=== PATIENT | female | born 1985 | race American Indian/Alaskan Native ===

== ENCOUNTER 2016-02-18 21:39 | Emergency (ER) | payer SELFPAY ==
[2016-02-18 22:46] VITALS: BP 193/124
== END 2016-02-19 03:10 | disposition left against medical advice (07) ==
LOC: ED 21:39
DX: M79.641 Pain in right hand (principal); M79.89 Other specified soft tissue disorders; Z53.21 Procedure and treatment not carried out due to patient leaving prior to being seen by health care provider

== ENCOUNTER 2016-07-04 16:58 | Emergency (ER) | payer SELFPAY ==
[2016-07-04] MEDS ORDERED: TYLENOL PO ONE (17:45)
[2016-07-04] MEDS ORDERED: CATAPRES PO ONE (18:11)
[2016-07-04 18:13] LABS: Basophils % (Auto) 0.6 % (0.0-1.8); Eosinophils % (Auto) 0.2 % (0.0-4.3); Hematocrit 32.3 % (30.3-42.9); Hemoglobin 10.3 gm/dl (10.1-14.3); Mean Corpuscular HGB Conc 32 % (30-34); Mean Corpuscular Volume 79 fl (79-97); Platelet Count 288 K/mm3 (140-440); Red Blood Count 4.08 M/mm3 (3.65-5.03); Red Cell Distribution Width 16.3 % (13.2-15.2); White Blood Count 13.1 K/mm3 (4.5-11.0)
[2016-07-04 18:20] LABS: Mean Corpuscular Hemoglobin 25 pg (28-32)
[2016-07-04 18:21] LABS: Anion Gap 19 mmol/L; BUN/Creatinine Ratio 18.33; Blood Urea Nitrogen 11 mg/dL (7-17); Calcium 9.2 mg/dL (8.4-10.2); Carbon Dioxide 22 mmol/L (22-30); Chloride 101.6 mmol/L (98-107); Glucose 90 mg/dL (65-100); Sodium 139 mmol/L (137-145)
[2016-07-04] MEDS ORDERED: DILAUDID IV ONE (23:07)
[2016-07-04] MEDS ORDERED: NACL 0.9% 1000 ML 1,000 ML IV ONE ×2 (23:07→23:08)
[2016-07-04] MEDS ORDERED: ZOFRAN IV ONE (23:08)
--- NOTE | 2016-07-04 23:10 | Emergency Department Report ---
ED General Adult HPI - General Chief complaint: Neuro Symptoms/Deficit Stated complaint: LUPUS Time Seen by Provider: 07/04/16 22:58 Source: patient, RN notes reviewed, old records reviewed Mode of arrival: Ambulatory Limitations: No Limitations - History of Present Illness Initial comments: This is a 30-year-old female. I have evaluated her in the past. She reports that she is seeing a new primary care doctor on either July 15 or July 16. She does not know the name of the primary care doctor. Past medical history includes asthma, hypertension, drug seeking behavior, obesity, polycystic ovarian syndrome, lupus, possible endometriosis. The patient presents to the ER today complaining of abdominal pain, back pain, body pain. This is been going on for days so. Positive cough. No chest pain. Mild nausea no vomiting. No irritative or obstructive urinary symptoms. Abdominal pain is achy, sharp, and diffuse. It increases with palpation and decreases with rest. The patient endorses a surgical history of right nephrectomy, right salpingectomy. Also endorses a history of fibroid removal, and ovarian cystectomy 2. -: Gradual Location: back, abdomen, left, right, upper extremity, lower extremity Severity scale (0 -10): 10 Quality: aching, sharp Improves with: medication Worsens with: movement Associated Symptoms: cough, loss of appetite, malaise, weakness. denies: confusion, chest pain - Related Data Previous Rx's Medication Instructions Recorded Last Taken Type Dicyclomine [Bentyl] 10 mg PO QID PRN #20 capsule 12/25/15 Unknown Rx Lisinopril [Zestril TAB] 40 mg PO QDAY #30 tablet 12/25/15 Unknown Rx Ondansetron [Zofran Odt] 4 mg PO QID PRN #20 tab.rapdis 12/25/15 Unknown Rx Acetaminophen [Tylenol Arthritis] 650 mg PO Q4HR PRN #30 tablet.er 07/05/16 Unknown Rx Ondansetron [Zofran Odt] 4 mg PO QID PRN #20 tab.rapdis 07/05/16 Unknown Rx Allergies Allergy/AdvReac Type Severity Reaction Status Date / Time ibuprofen [From Motrin] Allergy Vomiting Verified 12/09/14 03:37 Iodinated Contrast Media - Allergy Swelling Verified 12/09/14 03:37 IV Dye ketorolac tromethamine Allergy Vomiting Verified 12/09/14 03:37 [From Toradol] NSAIDS (Non-Steroidal Allergy Swelling Verified 10/29/15 03:56 Anti-Inflamma Penicillins Allergy Hives Verified 12/09/14 03:37 tramadol AdvReac Vomiting Verified 12/09/14 03:37 ED Review of Systems ROS: Stated complaint: LUPUS Other details as noted in HPI Constitutional: malaise, weakness Eyes: denies: vision change ENT: denies: epistaxis Respiratory: cough Cardiovascular: denies: chest pain Gastrointestinal: abdominal pain Genitourinary: denies: dysuria Musculoskeletal: back pain, arthralgia, myalgia Skin: denies: lesions Neurological: weakness Psychiatric: anxiety ED Past Medical Hx - Past Medical History Hx Hypertension: Yes Hx CVA: No Hx GERD: No Hx Liver Disease: No Hx Asthma: Yes Additional medical history: Left ovarian cyst; uterine fibroid, morbid obesity, endometriosis. Lupus - Surgical History Past Surgical History?: Yes Additional Surgical History: right ovarian cyst removal X2,last 11/10/14 laproscopic, right fallopian tube removed, fibroids removed - Social History Smoking Status: Never Smoker Substance Use Type: None - Medications Home Medications: Home Medications Medication Instructions Recorded Confirmed Last Taken Type Dicyclomine [Bentyl] 10 mg PO QID PRN #20 capsule 12/25/15 Unknown Rx Lisinopril [Zestril TAB] 40 mg PO QDAY #30 tablet 12/25/15 Unknown Rx Ondansetron [Zofran Odt] 4 mg PO QID PRN #20 tab.rapdis 12/25/15 Unknown Rx Acetaminophen [Tylenol Arthritis] 650 mg PO Q4HR PRN #30 tablet.er 07/05/16 Unknown Rx Ondansetron [Zofran Odt] 4 mg PO QID PRN #20 tab.rapdis 07/05/16 Unknown Rx ED Physical Exam - General Limitations: No Limitations General appearance: alert, in no apparent distress, obese - Head Head exam: Present: atraumatic, normocephalic - Eye Eye exam: Present: normal appearance, EOMI. Absent: nystagmus - ENT ENT exam: Present: normal exam, normal orophraynx, mucous membranes moist, normal external ear exam - Neck Neck exam: Present: normal inspection, full ROM. Absent: tenderness, meningismus - Respiratory Respiratory exam: Present: normal lung sounds bilaterally. Absent: respiratory distress, wheezes, rales, rhonchi, stridor, chest wall tenderness, accessory muscle use, decreased breath sounds, prolonged expiratory - Cardiovascular Cardiovascular Exam: Present: regular rate, normal rhythm, normal heart sounds. Absent: bradycardia, tachycardia, irregular rhythm, systolic murmur, diastolic murmur, rubs, gallop - GI/Abdominal GI/Abdominal exam: Present: soft, tenderness, normal bowel sounds, other (there is mild diffuse abdominal tenderness, no rebound, guarding or peritoneal signs.) . Absent: distended, guarding, rebound, rigid, pulsatile mass - External exam: Present: normal external exam Speculum exam: Present: normal speculum exam, cervical discharge. Absent: vaginal bleeding Bi-manual exam: Present: normal bi-manual exam, adnexal tenderness, uterine tenderness, other (during the gynecologic examination, I am escorted by nurse Keturah Lara) - Extremities Exam Extremities exam: Present: normal inspection, full ROM, normal capillary refill. Absent: tenderness, pedal edema, joint swelling, calf tenderness - Back Exam Back exam: Present: normal inspection, full ROM. Absent: tenderness, CVA tenderness (R), CVA tenderness (L), muscle spasm - Neurological Exam Neurological exam: Present: alert, oriented X3, normal gait, other (Extraocular movements intact. Tongue midline. No facial droop. Facial sensation intact to light touch in the V1, V2, V3 distribution bilaterally. 5 and 5 strength in 4 extremities.. Sensation is intact to light touch in 4 extremities.). Absent : motor sensory deficit - Psychiatric Psychiatric exam: Present: anxious - Skin Skin exam: Present: warm, dry, intact, normal color. Absent: rash ED Course Vital Signs 07/04/16 07/04/16 07/04/16 17:35 18:17 20:48 Temperature 97.6 F 99 F Pulse Rate 88 88 73 Respiratory 16 18 Rate Blood Pressure 184/125 183/124 173/107 O2 Sat by Pulse 100 Oximetry 07/04/16 07/04/16 07/04/16 22:29 22:30 22:32 Temperature Pulse Rate 82 Respiratory 16 Rate Blood Pressure 150/96 O2 Sat by Pulse 98 100 99 Oximetry 07/05/16 07/05/16 07/05/16 00:42 01:00 01:11 Temperature Pulse Rate 86 84 Respiratory 15 13 18 Rate Blood Pressure 150/96 195/107 O2 Sat by Pulse 100 Oximetry 07/05/16 07/05/16 07/05/16 01:26 01:27 01:41 Temperature Pulse Rate 85 Respiratory 18 18 Rate Blood Pressure 196/107 O2 Sat by Pulse Oximetry 07/05/16 07/05/16 07/05/16 02:44 02:51 03:00 Temperature Pulse Rate Respiratory 18 Rate Blood Pressure 137/93 168/81 O2 Sat by Pulse 98 99 Oximetry 07/05/16 04:00 Temperature Pulse Rate Respiratory 18 Rate Blood Pressure O2 Sat by Pulse 100 Oximetry ED Medical Decision Making - Lab Data Result diagrams: 07/04/16 17:52 07/04/16 17:52 Vital Signs 07/04/16 07/04/16 07/04/16 17:35 18:17 20:48 Temperature 97.6 F 99 F Pulse Rate 88 88 73 Respiratory 16 18 Rate Blood Pressure 184/125 183/124 173/107 O2 Sat by Pulse 100 Oximetry 07/04/16 07/04/16 07/04/16 22:29 22:30 22:32 Temperature Pulse Rate 82 Respiratory 16 Rate Blood Pressure 150/96 O2 Sat by Pulse 98 100 99 Oximetry 07/05/16 07/05/16 07/05/16 00:42 01:00 01:11 Temperature Pulse Rate 86 84 Respiratory 15 13 18 Rate Blood Pressure 150/96 195/107 O2 Sat by Pulse 100 Oximetry 07/05/16 07/05/16 01:26 01:27 Temperature Pulse Rate 85 Respiratory 18 Rate Blood Pressure 196/107 O2 Sat by Pulse Oximetry Lab Results 07/04/16 07/04/16 07/04/16 Range/Units 00:52 17:52 17:52 WBC 13.1 H (4.5-11.0) K/mm3 RBC 4.08 (3.65-5.03) M/mm3 Hgb 10.3 (10.1-14.3) gm/dl Hct 32.3 (30.3-42.9) % MCV 79 (79-97) fl MCH 25 L (28-32) pg MCHC 32 (30-34) % RDW 16.3 H (13.2-15.2) % Plt Count 288 (140-440) K/mm3 Lymph % (Auto) 11.6 L (13.4-35.0) % [place] % (Auto) 5.4 (0.0-7.3) % Eos % (Auto) 0.2 (0.0-4.3) % Baso % (Auto) 0.6 (0.0-1.8) % Lymph # 1.5 (1.2-5.4) K/mm3 [place] # 0.7 (0.0-0.8) K/mm3 Eos # 0.0 (0.0-0.4) K/mm3 Baso # 0.1 (0.0-0.1) K/mm3 Seg Neutrophils % 82.2 H (40.0-70.0) % Seg Neutrophils # 10.8 H (1.8-7.7) K/mm3 Sodium 139 (137-145) mmol/L Potassium 4.0 (3.6-5.0) mmol/L Chloride 101.6 (98-107) mmol/L Carbon Dioxide 22 (22-30) mmol/L Anion Gap 19 mmol/L BUN 11 (7-17) mg/dL Creatinine 0.6 L (0.7-1.2) mg/dL Estimated GFR > 60 ml/min BUN/Creatinine Ratio 18.33 % Glucose 90 (65-100) mg/dL Calcium 9.2 (8.4-10.2) mg/dL Urine Color Yellow (Yellow) Urine Turbidity Clear (Clear) Urine pH 5.0 (5.0-7.0) Ur Specific [place] 1.026 (1.003-1.030) Urine Protein <15 mg/dl (Negative) mg/dL Urine Glucose (UA) Neg (Negative) mg/dL Urine Ketones Neg (Negative) mg/dL Urine Blood Neg (Negative) Urine Nitrite Neg (Negative) Urine Bilirubin Neg (Negative) Urine Urobilinogen < 2.0 (<2.0) mg/dL Ur Leukocyte Esterase Neg (Negative) Urine WBC (Auto) 1.0 (0.0-6.0) /HPF Urine RBC (Auto) 2.0 (0.0-6.0) /HPF U Epithel Cells (Auto) 2.0 (0-13.0) /HPF Urine Mucus Few /HPF Urine HCG, Qual (Negative) 07/04/16 Range/Units Unknown WBC (4.5-11.0) K/mm3 RBC (3.65-5.03) M/mm3 Hgb (10.1-14.3) gm/dl Hct (30.3-42.9) % MCV (79-97) fl MCH (28-32) pg MCHC (30-34) % RDW (13.2-15.2) % Plt Count (140-440) K/mm3 Lymph % (Auto) (13.4-35.0) % [place] % (Auto) (0.0-7.3) % Eos % (Auto) (0.0-4.3) % Baso % (Auto) (0.0-1.8) % Lymph # (1.2-5.4) K/mm3 [place] # (0.0-0.8) K/mm3 Eos # (0.0-0.4) K/mm3 Baso # (0.0-0.1) K/mm3 Seg Neutrophils % (40.0-70.0) % Seg Neutrophils # (1.8-7.7) K/mm3 Sodium (137-145) mmol/L Potassium (3.6-5.0) mmol/L Chloride (98-107) mmol/L Carbon Dioxide (22-30) mmol/L Anion Gap mmol/L BUN (7-17) mg/dL Creatinine (0.7-1.2) mg/dL Estimated GFR ml/min BUN/Creatinine Ratio % Glucose (65-100) mg/dL Calcium (8.4-10.2) mg/dL Urine Color (Yellow) Urine Turbidity (Clear) Urine pH (5.0-7.0) Ur Specific [place] (1.003-1.030) Urine Protein (Negative) mg/dL Urine Glucose (UA) (Negative) mg/dL Urine Ketones (Negative) mg/dL Urine Blood (Negative) Urine Nitrite (Negative) Urine Bilirubin (Negative) Urine Urobilinogen (<2.0) mg/dL Ur Leukocyte Esterase (Negative) Urine WBC (Auto) (0.0-6.0) /HPF Urine RBC (Auto) (0.0-6.0) /HPF U Epithel Cells (Auto) (0-13.0) /HPF Urine Mucus /HPF Urine HCG, Qual Negative (Negative) - EKG Data -: EKG Interpreted by [place] EKG shows normal: sinus rhythm Rate: normal - EKG Data 07/05/16 02:04 normal sinus, 76 bpm, high left ventricular voltage, normal axis , QTC 450 ms, not morphologically consistent with STEMI, unchanged from prior EKGs December 2015. - Radiology Data Radiology results: report reviewed, image reviewed Noncontrast CT scan of the abdomen and pelvis: There is a nonspecific nodule noted in the right lower lobe. gallstones. Aorta , IVC within normal limits. No evidence of hydronephrosis. Left ovarian cystic structure is 5 x 4.1 cm. Multiple pelvic phleboliths. The appendix is normal. No focal inflammatory changes noted in the bowel or bowel obstruction. Nonspecific subcutaneous nodules along the anterior lower abdominal wall. Impression: Left adnexal cystic structure, likely ovarian in origin, previously 2.9 x 2.0 cm, pelvic ultrasound recommended. - Medical Decision Making Differential diagnosis: Lupus flare, pneumonia, urinary tract infection, endometriosis, ovarian cysts, hypertension Assessment and plan: 30-year-old female with acute on chronic exacerbation of chronic body pain and abdominal pain. She is afebrile, with elevated blood pressure. Noncontrast CT scan of the abdomen and pelvis demonstrates no acute surgical disease, and is essentially similar to prior CT scan. Had mild left adnexal discomfort, however doubt ovarian torsion, I have evaluated the patient for similar complaints in the past. Had markedly elevated blood pressure in the ER, which was treated aggressively, the patient was able to tolerate feeds. Pelvic ultrasound at this time is pending. care transferred to Dr West to follow up. Assuming pelvic ultrasound demonstrates no evidence of torsion or other surgical emergency, think the patient will be suitable to follow up with an outpatient primary care doctor and vocational technical education teacher. The patient reports that she has follow-up in a few days. She will be instructed to follow-up with her outpatient primary care doctor for further evaluation of hypertension. The patient endorses an allergy to NSAIDs, will prescribe acetaminophen for her pain. Critical care attestation.: If time is entered above; I have spent that time in minutes in the direct care of this critically ill patient, excluding procedure time. ED Disposition Clinical Impression: Abdominal pain, Elevated blood pressure reading Disposition: DISCHARGED TO HOME OR SELFCARE Is pt being admited?: No Does the pt Need Aspirin: No Condition: Stable Instructions: Endometriosis (ED), Hypertension (ED) Additional Instructions: Cultures were sent today, results will be available in the next 3-5 days. Have a primary care doctor contact the medical records department to obtain culture results. Follow-up with your primary care doctor appointment on July 15. It is very important to follow-up with her outpatient primary care appointment. Blood pressure was very elevated in the emergency room. Blood pressure needs to be better controlled, which should be done by her primary care doctor. Long- term complications of hypertension/elevated blood pressure includes stroke, heart attack, disability, paralysis, permanent loss of quality of life. Take the pain medication, nausea medication as directed. Return to the ER right away with new pain, worsened pain, migration of pain, fevers, chills, intractable nausea or vomiting, change in mental status, chest pain, inability to tolerate liquid feeds. Prescriptions: Acetaminophen [Tylenol Arthritis] 650 mg PO Q4HR PRN #30 tablet.er PRN Reason: Pain Ondansetron [Zofran Odt] 4 mg PO QID PRN #20 tab.rapdis PRN Reason: Nausea Referrals: PRIMARY CAREMD [Primary Care Provider] - 3-5 Days [facility] [Provider Group] - 3-5 Days [facility] [Provider Group] - 3-5 Days [facility] [Provider Group] - 3-5 Days
[2016-07-04] MEDS ORDERED: NACL 0.9% 1000 ML 1,000 ML ONE (23:50)
--- NOTE | 2016-07-05 00:50 | Cat Scan Report ---
FINAL REPORT EXAM: CT ABDOMEN PELVIS WO CON HISTORY: abd pain COMPARISON: CT abdomen pelvis December 2015. TECHNIQUE: Contiguous axial images were obtained. Additional sagittal and coronal reformatted images were obtained. FINDINGS: Partial visualization of 2 millimeter noncalcified nodule right lower lobe. Respiratory motion somewhat limits evaluation of the lung bases. No calcified gallstones. Liver, spleen, pancreas and adrenal glands are grossly unremarkable. No calcified gallstones. No nephrolithiasis or hydronephrosis. Aorta and IVC are normal in caliber. No distal ureteral or urinary bladder calculi uterus and right ovary grossly unremarkable. Left ovarian cystic structure measuring 5.0 x 4.1 centimeters. Multiple pelvic phleboliths. No free fluid or pathologic lymphadenopathy. The appendix is normal in caliber measuring 5 millimeters. No focal inflammatory changes the bowel or bowel obstruction. Bony pelvis and lumbar spine are grossly intact. Nonspecific subcutaneous nodules along the anterior lower abdominal wall which may relate to subcutaneous injection. IMPRESSION: Left adnexal cystic structure likely ovarian in origin measuring 5.0 x 4.1 centimeters in axial dimension. On prior exam this measured 2.9 x 2.0 centimeters. This may be physiologic given the patient's age. Followup pelvic ultrasound suggested to ensure resolution versus stability in the next 6-8 weeks. Stable 2 millimeter noncalcified nodule right lower lobe likely postinflammatory. No other gross acute findings.
[2016-07-05] MEDS ORDERED: APRESOLINE IV ONE (01:05)
[2016-07-05] MEDS ORDERED: DILAUDID IV ONE ×2 (01:05→02:32)
[2016-07-05 01:07] LABS: Bilirubin,Urine NEG (Negative); Blood,Urine NEG (Negative); Ketones,Urine NEG (Negative); Leukocyte Esterase,Urine NEG (Negative); Mucus,Urine FEW /HPF; Nitrite,Urine NEG (Negative); Protein,Urine <15 mg/dL mg/dL (Negative); Urobilinogen,Urine < 2.0 mg/dL (<2.0)
[2016-07-05] MEDS ORDERED: BENADRYL ONE (02:45)
[2016-07-05] MEDS ORDERED: BENADRYL IV ONE (02:53)
--- NOTE | 2016-07-05 04:28 | Emergency Department Report ---
Blank Doc - Documentation Documentation: Ultrasound results reviewed and discussed with the patient. Pelvic ultrasound shows a large, 6 cm left ovarian cyst. There are no other acute abnormalities. Patient is continuing to ask for pain medication after receiving a total of 2.5 g of IV Dilaudid. Previously, there was some concern for drug-seeking behavior. No further medication will be administered at this time. Patient will be discharged home at this time to follow-up with PA[facility] TECHNICIAN.
[2016-07-05 04:34] VITALS: BP 168/81
--- NOTE | 2016-07-09 07:41 | Ultrasound Report ---
FINAL REPORT PROCEDURE: US TRANSVAGINAL TECHNIQUE: Real-time transabdominal sonography in multiple planes of the pelvis was performed. The pelvic structures were not optimally visualized. Transvaginal sonography was then performed to better evaluate the structures and/or abnormalities described below with image documentation. Grayscale, color flow Doppler imaging and velocity spectral waveform analysis of the ovaries was employed (duplex imaging). CPT 15734, 53113, and 00003 HISTORY: pelvic pain COMPARISON: 12/25/2015 FINDINGS: UTERUS Size: 8.2 x 3.6 x 4.5 cm. Endometrial thickness: 8 mm. Orientation: Retroverted. Cervix: Normal. Fibroids/masses: None. RIGHT Ovary: The right ovary has been removed LEFT Ovary: 7.3 x 5.1 x 4.6 cm. Appearance: There is a large cyst on the left ovary this measures 6 centimeters.. Doppler images: Normal spectral waveforms and color flow. The systolic and diastolic velocities are within normal limits. Pelvic fluid: None. Other: None. IMPRESSION: There is a large cyst on the left ovary this measures up to 6 centimeters. The right ovary is absent consistent with surgical history. The uterus is retroverted. The uterine echogenicity is normal.
--- NOTE | 2016-07-09 07:41 | Ultrasound Report ---
FINAL REPORT PROCEDURE: Ultrasound pelvis, transabdominal and transvaginal with Doppler TECHNIQUE: Real-time transabdominal sonography in multiple planes of the pelvis was performed. The pelvic structures were not optimally visualized. Transvaginal sonography was then performed to better evaluate the structures and/or abnormalities described below with image documentation. Grayscale, color flow Doppler imaging and velocity spectral waveform analysis of the ovaries was employed (duplex imaging). CPT 48419, 35715, and 11650 HISTORY: pelvic pain COMPARISON: 12/25/2015 FINDINGS: UTERUS Size: 8.2 x 3.6 x 4.5 cm. Endometrial thickness: 8 mm. Orientation: Retroverted. Cervix: Normal. Fibroids/masses: None. RIGHT Ovary: The right ovary has been removed LEFT Ovary: 7.3 x 5.1 x 4.6 cm. Appearance: There is a large cyst on the left ovary this measures 6 centimeters.. Doppler images: Normal spectral waveforms and color flow. The systolic and diastolic velocities are within normal limits. Pelvic fluid: None. Other: None. IMPRESSION: There is a large cyst on the left ovary this measures up to 6 centimeters. The right ovary is absent consistent with surgical history. The uterus is retroverted. The uterine echogenicity is normal.
== END 2016-07-05 04:53 | disposition home or self-care (01) ==
LOC: ED 16:58
DX: R10.84 Generalized abdominal pain (principal); I10 Essential (primary) hypertension; J45.909 Unspecified asthma, uncomplicated; E66.01 Morbid (severe) obesity due to excess calories; Z88.0 Allergy status to penicillin; Z88.6 Allergy status to analgesic agent; Z91.041 Radiographic dye allergy status; Z88.8 Allergy status to other drugs, medicaments and biological substances
CPT/HCPCS: 36415; 51701; 74176; 76830; 80048; 81001; 81025; 85025; 87086; 87210; 87591; 93005; 93010; 93975; 96374; 96375; 96376; 99284; J0360; J1170; J1200; J2405; J7030

== ENCOUNTER 2021-06-28 22:24 | Emergency (ER) | payer MEDICAID ==
[2021-06-29 01:15] VITALS: BP 201/98
[2021-06-29 06:52] LABS: Bilirubin,Urine NEG (Negative); Blood,Urine LG (Negative); Color,Urine Yellow (Yellow); Mucus,Urine FEW /HPF; Protein,Urine <15 mg/dL mg/dL (Negative); Urobilinogen,Urine < 2.0 mg/dL (<2.0)
== END 2021-06-30 07:05 | disposition left against medical advice (07) ==
LOC: ED 22:24
DX: R10.9 Unspecified abdominal pain (principal); Z53.21 Procedure and treatment not carried out due to patient leaving prior to being seen by health care provider